=== PATIENT | male | born 1985 | race Caucasian/White ===

== ENCOUNTER 2024-03-22 16:50 | Emergency (ER) | payer BC, SELFPAY ==
--- OUTSIDE RECORDS SUMMARY | 2024-03-22 16:52 | XMS_ITS | Patient Health Summary ---
Author Organization [facility] Address [address] [place] [address] Care Team Providers Care Clinical Operations Specialist Name Role Phone Unavailable Primary Care Provider Unavailabl e Note from [facility],non-owned Affiliates and Associated Physician Practices is amultiple site organization consisting of ambulatory clinics and hospital sitesin [place], [place], [place] and [place]. This disclosure is being madepursuant to the Care Everywhere program and may not contain all information available regarding this patient. Last updated 17.[facility] [employer] Allergies No known active allergies Medications * Be aware that medications may not be up to date on this document. Alwaysverify current medications with the patient. * amphetamine-dextroamphetamine (ADDERALL) 20 MG tablet Take 20 mg by mouth every morning Social History Tobacco Use Types Packs/Day Years Used Date Smoking Tobacco: Never Assessed Sex and Gender Information Value Date Recorded Sex Assigned at Not on file Gender Identity Not on file Sexual Orientation Not on file Last Filed Vital Signs Vital Sign Reading Time Taken Comments Blood Pressure - - Pulse - - Temperature - - Respiratory Rate - - Oxygen Saturation - - Inhaled Oxygen Concentration - - Weight 94.3 kg (208 lb) 11/11/2016 12:19 PM CDT Height 190.5 cm (6' 3 ) 11/11/2016 12:19 PM CDT Body Mass Index 26 11/11/2016 12:19 PM CDT Procedures * MRI LUMBAR SPINE WO CONTRAST(Performed 11/19/2016) Performed for Acute midline low back pain with bilateral sciatica * XR LUMBAR SPINE 4VW OR MORE(Performed 11/19/2016) Performed for Acute midline low back pain with bilateral sciatica Results * MRI LUMBAR SPINE WO CONTRAST (11/19/2016 4:40 PM CDT) Anatomical Region Laterality Modality Spine Magnetic Resonan ce 11/19/2016 4:53 PM CDT Impressions 11/19/2016 5:02 PM CDT There is a grade I anterolisthesis of L5 relative to L4 and S1. 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 Diffuse disc herniations are present at L4-L5 and at L5-S1. There is annular tear at each of these levels. This can be a pain generator. Mild bilateral neural foraminal stenosis is present at L5-S1 with minimal neural foraminal narrowing at L4-L5. Edited by Naomie Kumar on 11/19/2016 5:01 PM Narrative 11/19/2016 5:02 PM CDT MRI LUMBAR SPINE INDICATION: Low back pain, lumbar disc degeneration. COMPARISON: Radiographic examination of the lumbar spine, November 19, 2016. TECHNIQUE: Sagittal and axial T1 and T2. Sagittal STIR, 3-D lumbar myelogram. FINDINGS: Previous radiographic examination of the lumbar spine demonstrates that this patient has five lumbar vertebral bodies. Careful correlation between this and the subsequent radiographic examinations of the lumbar spine is recommended to ensure consistent numbering of disc spaces. This is particularly important if surgery is considered. Alignment: There is a grade I anterolisthesis of L5 relative to L4 and S1. No malalignment is seen at any other level. Marrow: Normal. Spinal cord: Normal in morphology and in signal intensity. Terminates at approximately T12-L1. Disc spaces: Disc height and hydration at L4-L5 and L5-S1 with diffuse disc bulge at each of these levels. High signal intensity is present within the posterior annulus at L4-L5 and L5-S1 consistent with annular tear. The following levels were directly imaged in the axial plane: T12-L1: Normal. L1-L2: Normal. L2-L3: Normal. L3-L4: Normal. L4-L5: A mild diffuse disc bulge does not result in significant stenosis. Neural foramina are minimally narrowed. L5-S1: Facet arthropathy is present bilaterally. Pars interarticularis defects may be present. No significant central canal stenosis is appreciated. Malalignment results in mild bilateral neural foraminal narrowing, left greater than right. Procedure Note Doris Felix MD - 11/19/2016 MRI LUMBAR SPINE INDICATION: Low back pain, lumbar disc degeneration. COMPARISON: Radiographic examination of the lumbar spine, November 19, 2016. TECHNIQUE: Sagittal and axial T1 and T2. Sagittal STIR, 3-D lumbar myelogram. FINDINGS: Previous radiographic examination of the lumbar spine demonstrates that this patient has five lumbar vertebral bodies. Careful correlation between this and the subsequent radiographic examinations of the lumbar spine is recommended to ensure consistent numbering of disc spaces. This is particularly important if surgery is considered. Alignment: There is a grade I anterolisthesis of L5 relative to L4 and S1. No malalignment is seen at any other level. Marrow: Normal. Spinal cord: Normal in morphology and in signal intensity. Terminates at approximately T12-L1. Disc spaces: Disc height and hydration at L4-L5 and L5-S1 with diffuse disc bulge at each of these levels. High signal intensity is present within the posterior annulus at L4-L5 and L5-S1 consistent with annular tear. The following levels were directly imaged in the axial plane: T12-L1: Normal. L1-L2: Normal. L2-L3: Normal. L3-L4: Normal. L4-L5: A mild diffuse disc bulge does not result in significant stenosis. Neural foramina are minimally narrowed. L5-S1: Facet arthropathy is present bilaterally. Pars interarticularis defects may be present. No significant central canal stenosis is appreciated. Malalignment results in mild bilateral neural foraminal narrowing, left greater than right. IMPRESSION There is a grade I anterolisthesis of L5 relative to L4 and S1. 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 Diffuse disc herniations are present at L4-L5 and at L5-S1. There is annular tear at each of these levels. This can be a pain generator. Mild bilateral neural foraminal stenosis is present at L5-S1 with minimal neural foraminal narrowing at L4-L5. Edited by Naomie Kumar on 11/19/2016 5:01 PM Cresencio Hendrickson PA-C MR ORDERABLES * XR LUMBAR SPINE 4+ VW (11/19/2016 3:32 PM CDT) Anatomical Region Laterality Modality Spine Radiographic Kylie ging 11/19/2016 3:35 PM CDT Narrative 11/19/2016 3:36 PM CDT 5 VIEWS LUMBAR SPINE Indication: Back pain Comparison: None available Findings: There is subtle grade 1 anterolisthesis of L5 in regards to S1. There is decreased intervertebral disc space height at L4-L5 and L5-S1. There is subtle lucency in the region of the pars interarticularis at L5 which may indicate pars defects. Consider CT lumbar spine for further delineation if clinically indicated. There is no compression or osseous destruction. Procedure Note Pedro Rasheed MD - 11/19/2016 5 VIEWS LUMBAR SPINE Indication: Back pain Comparison: None available Findings: There is subtle grade 1 anterolisthesis of L5 in regards to S1. There is decreased intervertebral disc space height at L4-L5 and L5-S1. There is subtle lucency in the region of the pars interarticularis at L5 which may indicate pars defects. Consider CT lumbar spine for further delineation if clinically indicated. There is no compression or osseous destruction. Cresencio Hendrickson PA-C DIAGNOSTIC IMAGING O RDERABLES
--- OUTSIDE RECORDS SUMMARY | 2024-03-22 16:52 | XMS_ITS | Clinical Summary ---
Author Organization [facility] [employer] Address [address] [place] [address] Care Team Providers Care Agricultural Engineering Technician Name Role Phone Unavailable Primary Care Provider Unavailabl e Source Comments [facility] [employer],non-owned Affiliates and Associated Physician Practices is amultiple site organization consisting of ambulatory clinics and hospital sitesin [place], [place], [place] and [place]. This disclosure is being madepursuant to the Care Everywhere program and may not contain all information available regarding this patient. Last updated 17.[facility] [employer] Allergies No known active allergies Medications * Be aware that medications may not be up to date on this document. Alwaysverify current medications with the patient. Medication Sig Dispensed Refills Start Date End Date Status amphetamine-dextroamph etamine (ADDERALL) 20 MG tablet Take 20 mg by mouth every morning Active Social History Tobacco Use Types Packs/Day Years [...] Mass Index 26 11/11/2016 12:19 PM CDT Plan of Treatment Health Maintenance Due Date Last Done Comments HIV SCREENING 07/18/1999 HEPATITIS C SCREENING 07/13/2002 DTAP/TDAP/TD VACCINES (1 - Tdap) 07/18/2003 HEPATITIS B VACCINE (1 of 3 - 19+ 3-dose series) 07/18/2003 COVID-19 VACCINE (2023-2 5 season) 2023 INFLUENZA VACCINE (#1) 2023 DEPRESSION SCREENING 02/22/2024 ZOSTER VACCINE (1 of 2) 2034 HIB VACCINE Aged Out No longer eligi ble based on patient's age to complete this topic HPV VACCINE Aged Out No longer eligi ble based on patient's age to complete this topic MENINGOCOCCAL (Group B) VACCINE Aged Out No longer eligible based on patient's age to complete this topic MENINGOCOCCAL VACCINE Aged Out No tom erika eligible based on patient's age to complete this topic PNEUMOCOCCAL VACCINE Aged Out No long er eligible based on patient's age to complete this topic
--- OUTSIDE RECORDS SUMMARY | 2024-03-22 16:52 | XMS_ITS | Clinical Summary ---
Author Organization [facility] Address [address], [address] [address] Phone Care Team Providers Care Aviation Mechanic Name Role Phone Osei Mcleod MD Primary Care Provider [phone] Allergies No known active allergies Medications Fluticasone Propionate (FLONASE NA) by Nasal route daily. Active Cetirizine HCl (ZYRTEC PO) Take by mouth daily. Active amphetamine-dext roamphetamine (ADDERALL) 20 MG Tablet Take 20 mg by mouth 2 times daily. Active montelukast (SINGULAIR) 10 MG Tablet Take 10 mg by mouth daily. Active PROAIR HFA 108 (90 Base) MCG/ACT Aerosol Solution INHALE 2 PUFFS PO TID PRN 0 11/11/2017 Active Active Problems No known active problems Immunizations Immunization Administration Dates Next Due Influenza Vaccine greater than 3 yrs 11/22/2016 Family History Medical History Relation Name Comments Heart Attack Father Colon Cancer Maternal Grandfather Heart Attack Maternal Grandmother Stroke Paternal Grandfather Cancer Paternal Grandmother Relation Name Status Comments Father Alive Maternal Grandfather Maternal Grandmother Paternal Grandfather Paternal Grandmother Social History Tobacco Use Types Packs/Day Years Used Date Smoking Tobacco: Former Cigarettes Q uit: 09/27/2015 Smokeless Tobacco: Never Tobacco Cessation:Counseling Given: No Alcohol Use Standard Drinks/Week Comments Yes 0 (1 standard drink = 0.6 oz pur e alcohol) weekends Sexually Active Control Partners Comments Yes Sex and Gender Information Value Date Recorded Sex Assigned at Not on file Legal Sex Male 7:32 PM CDT Gender Identity Not on file Sexual Orientation Not on file Last Filed Vital Signs Vital Sign Reading Time Taken Comments Blood Pressure 118/76 11/30/2017 9:07 AM CDT Pulse 78 11/30/2017 9:07 AM CDT Temperature 36.9 ??C (98.5 ??F) 11/30/2017 9:07 AM CD T Respiratory Rate 18 11/30/2017 9:07 AM CDT Oxygen Saturation 98% 11/30/2017 9:07 AM CDT Inhaled Oxygen Concentration - - Weight 89.8 kg (198 lb) 11/30/2017 9:07 AM CDT Height 188 cm (6' 2 ) 11/30/2017 9:07 AM CDT Body Mass Index 25.42 11/30/2017 9:07 AM CDT Plan of Treatment Health Maintenance Due Date Last Done Comments Hepatitis C Virus (HCV) Screening 1984 TdaP Immunization 1984 Hepatitis B Immunization (1 of 3 - 19+ 3-dose series) 07/18/2003 Influenza Immunization (#1) 10/23/202303/2016, 11/21/2016, 12/02/2014 SARS-COV-2 Immunization ( season) 2023 Respiratory Syncytial Virus (RSV) Immunization (Adult) (1 - 1-dose 75+ series) 07/18/2059 Meningococcal Immunization (ACWY) Aged Out No longer eligible b ased on patient's age to complete this topic Pneumococcal Immunization Combined Aged Out No longer eligible b ased on patient's age to complete this topic Rotavirus Immunization Aged Out No lo nger eligible based on patient's age to complete this topic Insurance Care Teams Aviation Mechanic Relationship Specialty Start Date End Date Osei Mcleod MD [address] [place] [address] PCP - General Pulmonary Disease 09/22/17
--- OUTSIDE RECORDS SUMMARY | 2024-03-22 16:52 | XMS_ITS | Referral Summary ---
Author Organization [facility] [employer] Address [address] [place] [address] Care Team Providers Care Boarding Specialist Name Role Phone Unavailable Primary Care Provider Unavailabl e Source Comments [facility] [employer],non-owned Affiliates and Associated Physician Practices is amultiple site organization consisting of ambulatory clinics and hospital sitesin [place], [place], [place] and [place]. This disclosure is being madepursuant to the Care Everywhere program and may not contain all information available regarding this patient. Last updated 17.[facility] [employer] Allergies No known active allergies Medications * [...] 11/11/2016 12:19 PM CDT Plan of Treatment Not on file
--- OUTSIDE RECORDS SUMMARY | 2024-03-22 16:53 | XMS_ITS | Continuity of Care Document ---
Author Name [facility] Organization [facility] Care Team Providers Care Member Of Congress Name Role Phone [facility] Unavailable Unavailable Allergies, Adverse Reactions, Alerts Combined list of allergies from Department of Defense and Veterans Affairs facilities. It does not include entries that were removed or entered in error. Substance Category Reaction Severity Reaction type Status Date Reported Comments Source No Known Allergies Drug allergy (disorder) active 05/10/2007 [facility] Encounters Combined list of: 1) Encounters from Department of Veterans Affairs facilities going back up to thelast 18 months. 2) Encounters from the Department [facility] facilities going back up to 280 months. Location Location Details Encounter Type Encounter Number Reason For Visit Attending Provider ADM Date DC Date Status Disposition Source [facility] Outpatient Encounter [id number] 06/03 [facility] Procedures Combined list of: 1) Procedures from Department of Veterans [facility] facilities going back up to thelast 18 months, not all PA non-surgical procedures are included; 2) All procedures from the Department [facility] facilities. Procedure Procedure Type Code Date Perfomer Comments Sourc e POSTOPERATIVE FOLLOW-UP VISIT, NORMALLY INCLUDED IN THE SURGICAL PACKAGE, INDICATE THAT EVALUATION & MANAGEMENT SERVICE WAS PERFORMED DURING A POSTOPERATIVE PERIOD REASON RELATED ORIGINAL PROCEDURE 09/07/2002 [facility] INJECTION, FENTANYL CITRATE, 0.1 MG 09/02/2002 [facility] INDIVIDUAL PSYCHOTHERAPY, INSIGHT ORIENTED, BEHAVIOR MODIFYING AND/OR SUPPORTIVE, IN AN OFFICE OR OUTPATIENT FACILITY, APPROXIMATELY 20 TO 30 MINUTES [id number] W THE PATIENT; W MED EVAL & MGT SER 05/05/2004 [facility] INDIVIDUAL PSYCHOTHERAPY, INSIGHT ORIENTED, BEHAVIOR MODIFYING AND/OR SUPPORTIVE, IN AN OFFICE OR OUTPATIENT FACILITY, APPROXIMATELY 20 TO 30 MINUTES [id number] W THE PATIENT; W MED EVAL & MGT SER 05/04/2004 [facility] INDIVIDUAL PSYCHOTHERAPY, INSIGHT ORIENTED, BEHAVIOR MODIFYING AND/OR SUPPORTIVE, IN AN OFFICE OR OUTPATIENT FACILITY, APPROXIMATELY 45 TO 50 MINUTES [id number] W THE PATIENT; W MED EVAL & MGT SER 01/20/2004 [facility] INDIVIDUAL PSYCHOTHERAPY, INSIGHT ORIENTED, BEHAVIOR MODIFYING AND/OR SUPPORTIVE, IN AN OFFICE OR OUTPATIENT FACILITY, APPROXIMATELY 20 TO 30 MINUTES [id number] W THE PATIENT; [facility] EVAL & MGT SER 01/10/2004 DoD INDIVIDUAL PSYCHOTHERAPY, INSIGHT ORIENTED, BEHAVIOR MODIFYING AND/OR SUPPORTIVE, IN AN OFFICE OR OUTPATIENT FACILITY, APPROXIMATELY 45 TO 50 MINUTES [id number] WITH THE PATIENT 11/12/2003 [facility] INDIVIDUAL PSYCHOTHERAPY, INSIGHT ORIENTED, BEHAVIOR MODIFYING AND/OR SUPPORTIVE, IN AN OFFICE OR OUTPATIENT FACILITY, APPROXIMATELY 20 TO 30 MINUTES [id number] W THE PATIENT; [facility] EVAL & MGT SER 11/11/2003 [facility] INDIVIDUAL PSYCHOTHERAPY, INSIGHT ORIENTED, BEHAVIOR MODIFYING AND/OR SUPPORTIVE, IN AN OFFICE OR OUTPATIENT FACILITY, APPROXIMATELY 45 TO 50 MINUTES [id number] W THE PATIENT; [facility] EVAL & MGT SER 10/17/2003 [facility] INDIVIDUAL PSYCHOTHERAPY, INSIGHT ORIENTED, BEHAVIOR MODIFYING AND/OR SUPPORTIVE, IN AN OFFICE OR OUTPATIENT FACILITY, APPROXIMATELY 45 TO 50 MINUTES [id number] W THE PATIENT; [facility] EVAL & T SER 10/02/2003 [facility]D INDIVIDUAL PSYCHOTHERAPY, INSIGHT ORIENTED, BEHAVIOR MODIFYING AND/OR SUPPORTIVE, IN AN OFFICE OR OUTPATIENT FACILITY, APPROXIMATELY 45 TO 50 MINUTES [id number] WITH THE PATIENT 09/24/2003 [facility] INDIVIDUAL PSYCHOTHERAPY, INSIGHT ORIENTED, BEHAVIOR MODIFYING AND/OR SUPPORTIVE, IN AN OFFICE OR OUTPATIENT FACILITY, APPROXIMATELY 20 TO 30 MINUTES [id number] W THE PATIENT; [facility] EVAL & MGT SER 08/30/2003 [facility]D INDIVIDUAL PSYCHOTHERAPY, INSIGHT ORIENTED, BEHAVIOR MODIFYING AND/OR SUPPORTIVE, IN AN OFFICE OR OUTPATIENT FACILITY, APPROXIMATELY 20 TO 30 MINUTES [id number] W THE PATIENT; [facility] EVAL & MGT SER 08/16/2003 [facility] INDIVIDUAL PSYCHOTHERAPY, INSIGHT ORIENTED, BEHAVIOR MODIFYING AND/OR SUPPORTIVE, IN AN OFFICE OR OUTPATIENT FACILITY, APPROXIMATELY 45 TO 50 MINUTES [id number] WITH THE PATIENT 08/12/2003 [facility] INDIVIDUAL PSYCHOTHERAPY, INSIGHT ORIENTED, BEHAVIOR MODIFYING AND/OR SUPPORTIVE, IN AN OFFICE OR OUTPATIENT FACILITY, APPROXIMATELY 45 TO 50 MINUTES [id number] WITH THE PATIENT 08/05/2003 [facility] PSYCHIATRIC DIAGNOSTIC INTERVIEW EXAMINATION 07/26/2003 DoD PSYCHIATRIC DIAGNOSTIC INTERVIEW EXAMINATION 07/18/2003 [facility] PSYCHIATRIC DIAGNOSTIC INTERVIEW EXAMINATION 07/16/2003 DoD TREATMENT OF SUPERFICIAL WOUND DEHISCENCE; SIMPLE CLOSURE 06/28/2003 DoD Social History Combined list of available smoking, tobacco, and other social history from Department of Defense and Veterans Affairs facilities. Social History Type Response Date Comment Sourc e This section is an empty social history section. DoD
--- OUTSIDE RECORDS SUMMARY | 2024-03-22 16:53 | XMS_ITS | Encounter Summary ---
Author Organization [facility] Address [address] [place] [address] Care Team Providers Care Applied Research Director Name Role Phone Raudel Cline MD Primary Care Provider [phone] Encounter Details Date Type Department Care Team (Late st Contact Info) Description 07/23/2019 Telephone [facility] [address] [place] [address] Dedrick Rico, RT Social History Tobacco Use Types Packs/Day Years Used Date Smoking Tobacco: Never Smokeless Tobacco: Never Alcohol Use Standard Drinks/Week Comments Yes 0 (1 standard drink = 0.6 oz pur e alcohol) PHQ-2 Answer Date Recorded PHQ-2 Score 0 03/22/2019 Sex and Gender Information Value Date Recorded Sex Assigned at Not on file Legal Sex Male 12:47 PM CLINICAL RESEARCH TECH Gender Identity Male 07/07/2021 9:32 AM CDT Sexual Orientation Straight 07/07/2021 9: 32 AM CDT documented as of this encounter Plan of Treatment Not on file documented as of this encounter Visit Diagnoses Not on filedocumented in this encounter Additional Health Concerns Infection Onset Date Last Indicated Resolved Time COVID: Suspected 10/21/2019 10/21/2019 10/22/2019 4:28 AM CDT Respiratory Infection (YVON), contact + droplet Comment:Automatically added due to negative COVID-19 result. 10/22/2019 10/22/2019 11/05/2019 3:0 5 AM CDT COVID: Suspected 2021 2021 2021 4:31 PM CDT documented as of this encounter Care Teams Applied Research Director Relationship Specialty Start Date End Date Raudel Cline MD [address] [place] [address] PCP - General Family Medicine 03/22/19 documented as of this encounter
--- OUTSIDE RECORDS SUMMARY | 2024-03-22 16:53 | XMS_ITS | Referral Summary ---
Author Organization [address] lt Address [address] [facility] [place] [address] Care Team Providers Care Bag Turner Name Role Phone Raudel Cline MD Primary Care Provider [phone] Encounters Date Type Department Care Team Description 02/21/2024 7:00 AM VAT SKIMMER Office Visit [facility] [address] [address] Amber Starks NP Physical exam, annual (Primary Dx); Erectile dysfunction, unspecified erectile dysfunction type; Mild intermittent asthma without complication; Attention deficit hyperactivity disorder (ADHD), predominantly inattentive type; Mixed hyperlipidemia; Chronic bilateral low back pain without sciatica; BMI 24.0-24.9, adult from Last 3 Months Allergies Active Allergy Reactions Criticality Noted Date Comments Tolterodine Diarrhea Low 03/14/2023 Medications albuterol HFA (ProAir HFA) 90 mcg/actuation inhalerIndication s:Mild intermittent asthma without complication Inhale 2 puffs every 6 (six) hours as needed for wheezing 1 Inhaler 11 03/22/19 20 Active trospium XR (SANCTURA XR) 60 mg capsule,extended release 24hrIndications:O veractive bladder Take 1 capsule (60 mg total) by mouth daily 90 capsule 3 06/21/19 24 025 Active cyclobenzaprine (FLEXERIL) 10 mg tabletIndications :Chronic bilateral low back pain without sciatica Take 1 tablet (10 mg total) by mouth 3 (three) times a day as needed for muscle spasms 30 tablet 07/14/19 24 Active fluticasone propionate (FLONASE) 50 mcg/actuation nasal sprayIndications: Chronic rhinitis SHAKE LIQUID AND USE 2 SPRAYS IN EACH NOSTRIL DAILY 48 g 2 11/17/19 24 Active cetirizine (ZyrTEC) 10 mg tablet TAKE 1 TABLET BY MOUTH DAILY 90 tablet 1 12/08/19 24 Active meloxicam (MOBIC) 15 mg tablet TAKE 1 TABLET(15 MG) BY MOUTH DAILY 90 tablet 1 02/06/20 24 Active tadalafiL (CIALIS) 20 mg tabletIndications :Erectile dysfunction, unspecified erectile dysfunction type Take 1 tablet (20 mg total) by mouth daily as needed for erectile dysfunction 30 tablet 11 02/21/20 24 Active dextroamphetamine -amphetamine (ADDERALL) 20 mg tabletIndications :Attention-Defici t Hyperactivity Disorder Take 1 tablet (20 mg total) by mouth 2 (two) times a day 60 tablet 03/19/19 25 025 Active dextroamphetamine -amphetamine (ADDERALL) 20 mg tabletIndications :Attention-Defici t Hyperactivity Disorder Take 1 tablet (20 mg total) by mouth 2 (two) times a day 60 tablet 02/13/20 24 025 Discontin ued(Reord er) Active Problems Problem Noted Date Diagnosed Date Vitamin D deficiency 05/31/2023 Assessment & Plan (05/31/2023 11:22 AM CDT): Started vitamin d sublingual supplement. Reviewed outside labs completed in February showing vitamin D=21 Reports sig improvement in energy with supplementation. Chronic bilateral low back pain without sciatica 11/12/2022 Assessment & Plan (02/21/2024 8:47 AM VAT SKIMMER): Having improvement with Meloxicam PRN. Will continue to monitor. Assessment & Plan (09/02/2023 1:37 PM CDT): Significant improvement in back pain with weight loss. Continues meloxicam as needed. Assessment & Plan (11/12/2022 5:17 PM CDT): Stable; good relief with meloxicam however notes it takes awhile for meloxicam to start working in the morning. Will avoid acetaminophen for now. Can trial prn use of cyclobenzaprine and reviewed medication side effects. Considering epidural Bilirubin in urine 11/12/2022 Assessment & Plan (11/12/2022 5:15 PM CDT): Incidental finding with urology office. Patient instructed to avoid ETOH (reports social alcohol use only) and avoid use of acetaminophen (currently taking 1000 mg daily). Will repeat UA and check labs. LFT, UA, hepatitis panel ordered. Physical exam, annual 04/23/2022 Assessment & Plan (02/21/2024 8:47 AM VAT SKIMMER): In regard to health maintenance, Influenza vaccine- declined Eat a healthy diet: focus on lean meats and proteins, more fruits, vegetables and whole grains and low in sugars and fats. Limit red meat and avoid processed meat. Maintain a healthy weight; avoid being overweight. Aim for a normal body mass index (BMI) of 18.5-24.9. Help learning to eat healthier, we can set up appointment with voice writing reporter/biodiesel technology manager. Have an active lifestyle, strive for 30 minutes of moderate exercise 5 times a week and strength or resistance training at least twice a week. Use broad-spectrum (UVA+UVB) sunscreen with SPF 30 or greater, is water resistant, limit time spent in the sun (10 am-4pm), wear hat, wear UV protective clothing, wear sunglasses. Never use a tanning bed. Skin that was irradiated may be more sensitive over your lifetime. Limit alcohol intake, 1 drink per day for a woman and 2 drinks per day for a man. Assessment & Plan (04/23/2022 3:23 PM VAT SKIMMER): Preventive exam; reviewed recommended preventive screenings and vaccinations. Encouraged patient to complete labs. Screening c-scope age 44, no family history of colorectal cancer. Overactive bladder 04/23/2022 Assessment & Plan (02/24/2023 4:35 PM VAT SKIMMER): Tried in failed VESIcare, oxybutynin and Myrbetriq. Is currently taking tolterodine which he feels is causing him to have diarrhea. He would like to start trospium however insurance will not cover this until several other medications have been tried and failed. Patient is close to failing all medications so hopefully this will finally be approved. Assessment & Plan (07/30/2022 4:17 PM CDT): Following with urology, slight improvement with mirabegron. Assessment & Plan (04/23/2022 3:28 PM VAT SKIMMER): Followign with urology, started on mirabegron 25 mg daily with moderate response, patient interseted in increasing medication dosage. Agreeable to increase mirabegron to 50 mg daily, reviewed medication side effects and scheduling. Will monitor response. BMI 24.0-24.9, adult 10/09/2021 Assessment & Plan (02/21/2024 8:47 AM VAT SKIMMER): Weight appropriate for patient. Assessment & Plan (09/02/2023 1:45 PM CDT): Continues to benefit from GLP 1, [facility] by [facility]. Weight is down 50 lb in the past 7 months. Patient reports making significant diet changes, is now eating a lot healthier. Assessment & Plan (05/31/2023 11:28 AM CDT): Weight loss of 33lbs from last office visit with use of GLP-1. Patient states he was tolerating medication. Discontinued as he has reached his goal weight. Will continue to monitor Assessment & Plan (07/30/2022 4:24 PM CDT): As always, encourage increase exercise and healthy lifestyle. Assessment & Plan (04/23/2022 3:24 PM VAT SKIMMER): Discussed healthy diet and importance of regular physical activity. Assessment & Plan (04/23/2022 3:08 PM VAT SKIMMER): Discussed healthy diet and importance of regular physical activity. Assessment & Plan (10/09/2021 2:23 PM CDT): Discussed healthy diet and importance of regular physical activity. Reviewed recent lipid panel with patient recommended increase exercise to help increase healthy cholesterol. Urinary frequency 03/13/2021 Assessment & Plan (04/23/2022 3:08 PM VAT SKIMMER): Stable; Following with urology, was benefiting from oxybutynin but could not tolerate dry mouth side effects. Will continue to monitor. Assessment & Plan (07/03/2021 2:52 PM CDT): Unchanged; Updated referral to urology. Assessment & Plan (03/26/2021 11:39 AM VAT SKIMMER): Will check urine. Reviewed bladder irritants. Discussed reducing caffeine and artificial sweeteners in diet. Increase fluid intake. Reviewed red flags warranting immediate follow up. Urology referral placed. Gastroesophageal reflux disease 03/13/2021 Assessment & Plan (03/26/2021 11:38 AM VAT SKIMMER): Omeprazole 40mg daily, avoid aggravating foods and avoid laying down after eating. Discussed need to decrease caffeine consumption. Erectile dysfunction 03/13/2021 Assessment & Plan (02/21/2024 8:47 AM VAT SKIMMER): Cialis refilled. Continues to have success with use. Will continue to monitor. Assessment & Plan (03/26/2021 11:37 AM VAT SKIMMER): Given symptom onset with increased urinary frequency recommended referral to urology for further evaluation. Patient given contact information. Need for immunization against influenza 11/29/19 21 Mixed hyperlipidemia 11/28/2020 Assessment & Plan (02/21/2024 8:46 AM VAT SKIMMER): Lipid panel elevated and not well controlled. Will continue to monitor. There is a pending Lipid panel in chart. Continues to decline medication. Assessment & Plan (05/31/2023 11:13 AM CDT): TC 246 HDL 20 LDL 166 TRG 299 03/17 TC 189 HDL 25 LDL 138 TRG 139 Assessment & Plan (02/24/2023 4:35 PM VAT SKIMMER): Results for orders placed or performed in visit on 02/24/23 POCT lipid panel Result Value Ref Range Cholesterol, POC 246 mg/dL HDL, POC 20 mg/dL Triglycerides, POC 299 mg/dL LDL, Direct, POC 166 mg/dL Chol/HDL Ratio, POC 12.0 Non-HDL Cholesterol, POC 226 mg/dL Cholesterol Total, POC 246 mg/dL Reviewed triglycerides and elevated LDL. Reviewed diet and exercise recommendations. Patient states that he and his recently started meal prepping. Will repeat labs prior to next follow-up in 3 months. Labs ordered previously Assessment & Plan (11/12/2022 5:17 PM CDT): Fasting labs ordered today. Assessment & Plan (07/30/2022 4:23 PM CDT): Will complete fasting labs. Assessment & Plan (04/23/2022 3:24 PM VAT SKIMMER): Encouraged patient to complete labs. Assessment & Plan (03/26/2021 11:40 AM VAT SKIMMER): To complete labs ordered at last OV. Encounter for screening for lipid disorder 05/26 Assessment & Plan (11/28/2020 4:12 PM CDT): Reviewed previous lipid panel. Will check labs today. Assessment & Plan (08/28/2020 5:47 PM CDT): 03/29/19 TV=551 HDL=34 TG=84 RSF=972 TC/HDL=5.0 Lipid panel ordered; will call w/results when received. Reviewed diet/exercise recommendations. Deviated nasal septum 07/05/2019 Assessment & Plan (07/05/2019 4:22 PM CDT): Will Review 2018 CT Sinus, consider repeating it Septoplasty and Submucosal reduction of Inferior turbinates bilaterally Risks and complications include anesthesia, bleeding, infection, injury to surrounding structures including brain with csf leak, eyes with vision changes, nasal mucosa, atrophic rhinitis, no guarantee that sense of smell will return, need for further surgery. Hypertrophy of both inferior nasal turbinates Assessment & Plan (07/05/2019 4:22 PM CDT): Will Review 2018 CT Sinus, consider repeating it Septoplasty and Submucosal reduction of Inferior turbinates bilaterally Risks and complications include anesthesia, bleeding, infection, injury to surrounding structures including brain with csf leak, eyes with vision changes, nasal mucosa, atrophic rhinitis, no guarantee that sense of smell will return, need for further surgery. Fatigue 05/17/2019 Assessment & Plan (11/28/2020 4:12 PM CDT): Discussed differential diagnoses and multiple factors influencing fatigue including anemia, endocrinopathies, vitamin deficiencies, hormonal imbalance, inadequate sleep, poor diet, and lack of exercise. Encouraged healthy eating and regular physical activity. Reviewed sleep hygiene. Will continue to monitor. Assessment & Plan (08/28/2020 5:48 PM CDT): Reviewed good sleep hygiene: no electronics, cool/dark room, warm shower/tub prior to bedtime, no caffeine after 3-4p, no exercise 3hr prior to sleep. Labs ordered; will contact w/results when rec'd. Assessment & Plan (05/17/2019 3:05 PM CDT): Likely due to decreased nutrition and hydration status. Mild intermittent asthma without complication Assessment & Plan (02/21/2024 8:45 AM VAT SKIMMER): Stable and well controlled. Will continue on PRN albuterol inhaler. Rarely using. Will continue to monitor. Attention deficit hyperactiv ity disorder (ADHD), predominantly inattentive type 03/22/2019 Assessment & Plan (02/21/2024 8:45 AM VAT SKIMMER): Stable and well controlled. Will continue on Adderall. Will continue to monitor. Assessment & Plan (09/02/2023 1:45 PM CDT): Stable; continue present management with Adderall 20 mg b.i.d.. No changes made today, tolerating medication without side effects. Patient is taking medication as prescribed. Assessment & Plan (05/31/2023 11:24 AM CDT): Conitnues adderall 20 mg b.i.d. no changes made today. Assessment & Plan (02/24/2023 4:35 PM VAT SKIMMER): Good response to present management, no changes made today. Continue Adderall 20 mg b.i.d. Assessment & Plan (11/12/2022 5:16 PM CDT): Stable; continue adderall 20 mg b.I.d. Patient reports good response to medication and is taking medication as prescribed. Assessment & Plan (07/30/2022 4:23 PM CDT): Stable; continue Adderall without change. Patient is taking medications as prescribed. Assessment & Plan (04/23/2022 3:26 PM VAT SKIMMER): Stable on current medications. No changes made today. Denies any side effects from adderall. Assessment & Plan (04/23/2022 3:08 PM VAT SKIMMER): Stable; continue current prescription therapy. Assessment & Plan (10/09/2021 2:22 PM CDT): Stable. Continue adderall 20 mg b.i.d. Patient denies any changes in appetite, weight or moods. No sleep disturbance, chest pain, palpitations or sob. Assessment & Plan (07/03/2021 2:51 PM CDT): Doing well on adderall 20mg daily. Reviewed medication SE and scheduling. Assessment & Plan (03/26/2021 11:40 AM VAT SKIMMER): Doing well on adderall 20mg daily. Reviewed medication SE and scheduling. Assessment & Plan (08/28/2020 3:37 PM CDT): adderall 20mg bid #60 refilled 08/07/20 Reports improvement in work/family with medications to control ADD. Aware to monitor weight/HR/BP. Reviewed medication side effects and scheduling. Reviewed red flags. Assessment & Plan (08/20/2019 4:14 PM CDT): Stable on current medication Primary narcolepsy without cataplexy 03/22/2019 Assessment & Plan (08/28/2020 3:38 PM CDT): adderall 20mg bid #60 refilled 08/07/20 Assessment & Plan (03/26/2019 3:59 PM VAT SKIMMER): Will continue current use of Adderall. May consider switching to Nuvigil. Family history of arteriosclerotic cardiovascula r disease 03/22/2019 Assessment & Plan (03/26/2019 4:00 PM VAT SKIMMER): Reviewed heart healthy eating, need for maintaining a healthy weight and exercise. Allergies 03/22/2019 Assessment & Plan (07/05/2019 4:34 PM CDT): Continue Allergy treatment with Dr. Dominguez Assessment & Plan (03/26/2019 3:59 PM VAT SKIMMER): Symptoms controlled at this time. Chronic pain of left ankle 03/22/2019 Nasal polyps 03/22/2019 Chronic rhinitis 03/22/2019 Resolved Problems Problem Noted Date Diagnosed Date Resolved Date BMI 27.0-27.9,adult 08/28/2020 05/12/19 22 Assessment & Plan (03/26/2021 11:40 AM VAT SKIMMER): Discussed healthy diet and importance of regular physical activity. BMI is acceptable for this patient. Assessment & Plan (11/28/2020 4:15 PM CDT): Discussed healthy diet and importance of regular physical activity. Assessment & Plan (08/28/2020 3:58 PM CDT): Discussed healthy diet and importance of regular physical activity. BMI is acceptable for this patient. Skin tag 08/20/2019 08/28/2020 Assessment & Plan (08/20/2019 4:15 PM CDT): Will make appointment to have this removed. Diarrhea 05/17/2019 08/28/2020 Assessment & Plan (05/17/2019 3:05 PM CDT): This has resolved. Advised on need for hydration. Nausea 05/17/2019 08/28/2020 Assessment & Plan (05/17/2019 3:04 PM CDT): Briefed on eating a diet with bland foods. Immunizations Name Administration Dates Next Due Influenza, Quadrivalent, Spl it, Preservative Free, Intramuscular 11/12/2022,01/22/2022,11/28/2020,10/21 Influenza, Trivalent, IM (MDV) 11/22/2016 Influenza, Trivalent, Preser vative Free, Intramuscular 11/21/2016,12/02/2014 Influenza, Unspecified 02/21/2024(Deferr ed: Patient Refused),01/20/2019 Pneumococcal Conjugate Pcv20 10/09/2021(Deferred : Patient Refused) Pneumococcal Polysaccharide PPV23 07/03/2021(Def erred: Patient Refused) Tdap 10/22/2019 Social History Tobacco Use Types Packs/Day Years Used Date Smoking Tobacco: Never Smokeless Tobacco: Never Tobacco Cessation:Counseling Given: Not Answered Alcohol Use Standard Drinks/Week Comments Yes 0 (1 standard drink = 0.6 oz pur e alcohol) AUDIT-C Answer Date Recorded Q1: How often do you have a drink containing alc ohol? 2-4 times a month 11/12/2022 Q2: How many drinks containi ng alcohol do you have on a typical day when you are drinking? 3 or 4 11/12/2022 Q3: How often do you have si x or more drinks on one occasion? Never 11/12/2022 PHQ-2 Answer Date Recorded PHQ-2 Total Score (If total score is 3 or more points, staff should administer the PHQ-9) 0 02/21/2024 Sex and Gender Information Value Date Recorded Sex Assigned at Not on file Legal Sex Male 12:47 PM VAT SKIMMER Gender Identity Male 07/07/2021 9:32 AM CDT Sexual Orientation Straight 07/07/2021 9: 32 AM CDT Occupation Industry Job Start Date Job End Date [employer] Not on file Not on file Not on file Last Filed Vital Signs Vital Sign Reading Time Taken Comments Blood Pressure 100/74 02/21/2024 7:05 AM VAT SKIMMER Pulse 88 02/21/2024 7:05 AM VAT SKIMMER Temperature 37.1 ??C (98.8 ??F) 09/02/2023 1:27 PM CD T Respiratory Rate 18 02/21/2024 7:05 AM VAT SKIMMER Oxygen Saturation 95% 02/21/2024 7:05 AM VAT SKIMMER Inhaled Oxygen Concentration - - Weight 91.3 kg (201 lb 3.2 oz) 02/21/2024 7:05 A M VAT SKIMMER Height 185.4 cm (6' 0.99 ) 02/21/2024 7:05 AM CS T Body Mass Index 26.55 02/21/2024 7:05 AM VAT SKIMMER Plan of Treatment Not on file Insurance [employer] [facility] [employer] [place] [facility] Care Teams Bag Turner Relationship Specialty Start Date End Date Raudel Cline MD [address] [place] [address] PCP - General Family Medicine 03/22/19
--- OUTSIDE RECORDS SUMMARY | 2024-03-22 16:53 | XMS_ITS | Clinical Summary ---
Author Organization [address] lt Address [address] ernesto [facility] [place] [address] Care Team Providers Care Histology Aide Name Role Phone Raudel Cline MD Primary Care Provider [phone] Allergies Active Allergy Reactions Criticality Noted Date [...] 11/12/2022 Assessment & Plan (02/21/2024 8:47 AM DIE ENGRAVER): Having improvement with Meloxicam PRN. Will continue [...] 04/23/2022 Assessment & Plan (02/21/2024 8:47 AM DIE ENGRAVER): In regard to health maintenance, Influenza vaccine- [...] healthier, we can set up appointment with lead technologist in cytogenetics/vegetable cutter. Have an active lifestyle, strive for 30 [...] man. Assessment & Plan (04/23/2022 3:23 PM DIE ENGRAVER): Preventive exam; reviewed recommended preventive screenings and vaccinations. Encouraged patient to complete labs. Screening c-scope age 44, no family history of colorectal cancer. Overactive bladder 04/23/2022 Assessment & Plan (02/24/2023 4:35 PM DIE ENGRAVER): Tried in failed VESIcare, oxybutynin and Myrbetriq. [...] mirabegron. Assessment & Plan (04/23/2022 3:28 PM DIE ENGRAVER): Followign with urology, started on mirabegron 25 mg daily with moderate response, patient interseted in increasing medication dosage. Agreeable to increase mirabegron to 50 mg daily, reviewed medication side effects and scheduling. Will monitor response. BMI 24.0-24.9, adult 10/09/2021 Assessment & Plan (02/21/2024 8:47 AM DIE ENGRAVER): Weight appropriate for patient. Assessment & Plan [...] lifestyle. Assessment & Plan (04/23/2022 3:24 PM DIE ENGRAVER): Discussed healthy diet and importance of regular physical activity. Assessment & Plan (04/23/2022 3:08 PM DIE ENGRAVER): Discussed healthy diet and importance of regular physical activity. Assessment & Plan (10/09/2021 2:23 PM CDT): Discussed healthy diet and importance of regular physical activity. Reviewed recent lipid panel with patient recommended increase exercise to help increase healthy cholesterol. Urinary frequency 03/13/2021 Assessment & Plan (04/23/2022 3:08 PM DIE ENGRAVER): Stable; Following with urology, was benefiting from oxybutynin but could not tolerate dry mouth side effects. Will continue to monitor. Assessment & Plan (07/03/2021 2:52 PM CDT): Unchanged; Updated referral to urology. Assessment & Plan (03/26/2021 11:39 AM DIE ENGRAVER): Will check urine. Reviewed bladder irritants. Discussed reducing caffeine and artificial sweeteners in diet. Increase fluid intake. Reviewed red flags warranting immediate follow up. Urology referral placed. Gastroesophageal reflux disease 03/13/2021 Assessment & Plan (03/26/2021 11:38 AM DIE ENGRAVER): Omeprazole 40mg daily, avoid aggravating foods and avoid laying down after eating. Discussed need to decrease caffeine consumption. Erectile dysfunction 03/13/2021 Assessment & Plan (02/21/2024 8:47 AM DIE ENGRAVER): Cialis refilled. Continues to have success with use. Will continue to monitor. Assessment & Plan (03/26/2021 11:37 AM DIE ENGRAVER): Given symptom onset with increased urinary frequency recommended referral to urology for further evaluation. Patient given contact information. Need for immunization against influenza 11/29/19 21 Mixed hyperlipidemia 11/28/2020 Assessment & Plan (02/21/2024 8:46 AM DIE ENGRAVER): Lipid panel elevated and not well controlled. Will continue to monitor. There is a pending Lipid panel in chart. Continues to decline medication. Assessment & Plan (05/31/2023 11:13 AM CDT): TC 246 HDL 20 LDL 166 TRG 299 03/17 TC 189 HDL 25 LDL 138 TRG 139 Assessment & Plan (02/24/2023 4:35 PM DIE ENGRAVER): Results for orders placed or performed in [...] labs. Assessment & Plan (04/23/2022 3:24 PM DIE ENGRAVER): Encouraged patient to complete labs. Assessment & Plan (03/26/2021 11:40 AM DIE ENGRAVER): To complete labs ordered at last OV. Encounter for screening for lipid disorder 05/26 Assessment & Plan (11/28/2020 4:12 PM CDT): Reviewed previous lipid panel. Will check labs today. Assessment & Plan (08/28/2020 5:47 PM CDT): 03/29/19 YG=276 HDL=34 TG=84 KCB=291 TC/HDL=5.0 Lipid panel ordered; will call w/results [...] complication Assessment & Plan (02/21/2024 8:45 AM DIE ENGRAVER): Stable and well controlled. Will continue on PRN albuterol inhaler. Rarely using. Will continue to monitor. Attention deficit hyperactiv ity disorder (ADHD), predominantly inattentive type 03/22/2019 Assessment & Plan (02/21/2024 8:45 AM DIE ENGRAVER): Stable and well controlled. Will continue on [...] today. Assessment & Plan (02/24/2023 4:35 PM DIE ENGRAVER): Good response to present management, no changes made today. Continue Adderall 20 mg b.i.d. Assessment & Plan (11/12/2022 5:16 PM CDT): Stable; continue adderall 20 mg b.I.d. Patient reports good response to medication and is taking medication as prescribed. Assessment & Plan (07/30/2022 4:23 PM CDT): Stable; continue Adderall without change. Patient is taking medications as prescribed. Assessment & Plan (04/23/2022 3:26 PM DIE ENGRAVER): Stable on current medications. No changes made today. Denies any side effects from adderall. Assessment & Plan (04/23/2022 3:08 PM DIE ENGRAVER): Stable; continue current prescription therapy. Assessment & Plan (10/09/2021 2:22 PM CDT): Stable. Continue adderall 20 mg b.i.d. Patient denies any changes in appetite, weight or moods. No sleep disturbance, chest pain, palpitations or sob. Assessment & Plan (07/03/2021 2:51 PM CDT): Doing well on adderall 20mg daily. Reviewed medication SE and scheduling. Assessment & Plan (03/26/2021 11:40 AM DIE ENGRAVER): Doing well on adderall 20mg daily. Reviewed [...] 08/07/20 Assessment & Plan (03/26/2019 3:59 PM DIE ENGRAVER): Will continue current use of Adderall. May consider switching to Nuvigil. Family history of arteriosclerotic cardiovascula r disease 03/22/2019 Assessment & Plan (03/26/2019 4:00 PM DIE ENGRAVER): Reviewed heart healthy eating, need for maintaining a healthy weight and exercise. Allergies 03/22/2019 Assessment & Plan (07/05/2019 4:34 PM CDT): Continue Allergy treatment with Dr. Dominguez Assessment & Plan (03/26/2019 3:59 PM DIE ENGRAVER): Symptoms controlled at this time. Chronic pain of left ankle 03/22/2019 Nasal polyps 03/22/2019 Chronic rhinitis 03/22/2019 Resolved Problems Problem Noted Date Diagnosed Date Resolved Date BMI 27.0-27.9,adult 08/28/2020 05/12/19 22 Assessment & Plan (03/26/2021 11:40 AM DIE ENGRAVER): Discussed healthy diet and importance of regular [...] on eating a diet with bland foods. Encounters Date Type Department Care Team Description 02/21/2024 7:00 AM DIE ENGRAVER [facility] Visit [facility] [address] [address] Amber Starks NP Physical exam, annual (Primary Dx); Erectile dysfunction, unspecified erectile dysfunction type; Mild intermittent asthma without complication; Attention deficit hyperactivity disorder (ADHD), predominantly inattentive type; Mixed hyperlipidemia; Chronic bilateral low back pain without sciatica; BMI 24.0-24.9, adult from Last 3 Months Immunizations Name Administration Dates Next Due Influenza, Quadrivalent, Spl it, Preservative Free, Intramuscular 11/12/2022,01/22/2022,11/28/2020,10/21 Influenza, Trivalent, IM (MDV) 11/22/2016 Influenza, Trivalent, Preser vative Free, Intramuscular 11/21/2016,12/02/2014 Influenza, Unspecified 02/21/2024(Deferr ed: Patient Refused),01/20/2019 Pneumococcal Conjugate Pcv20 10/09/2021(Deferred : Patient Refused) Pneumococcal Polysaccharide PPV23 07/03/2021(Def erred: Patient Refused) Tdap 10/22/2019 Medical History Medical History Date Comments Asthma ADHD (attention deficit hyperactivity disorder) Depression Spina bifida (HCC) Family History Medical History Relation Name Comments Heart disease Father Relation Name Status Comments Brother Alive Father Alive Mother Alive Sister 1 Alive Sister 2 Alive Social History Tobacco Use Types Packs/Day Years [...] on file Legal Sex Male 12:47 PM DIE ENGRAVER Gender Identity Male 07/07/2021 9:32 AM CDT Sexual Orientation Straight 07/07/2021 9: 32 AM CDT Occupation Industry Job Start Date Job End Date [employer] Not on file Not on file Not on file Obstetrics History Last Filed Vital Signs Vital Sign Reading Time Taken Comments Blood Pressure 100/74 02/21/2024 7:05 AM DIE ENGRAVER Pulse 88 02/21/2024 7:05 AM DIE ENGRAVER Temperature 37.1 ??C (98.8 ??F) 09/02/2023 1:27 PM CD T Respiratory Rate 18 02/21/2024 7:05 AM DIE ENGRAVER Oxygen Saturation 95% 02/21/2024 7:05 AM DIE ENGRAVER Inhaled Oxygen Concentration - - Weight 91.3 kg (201 lb 3.2 oz) 02/21/2024 7:05 A M DIE ENGRAVER Height 185.4 cm (6' 0.99 ) 02/21/2024 7:05 AM CS T Body Mass Index 26.55 02/21/2024 7:05 AM DIE ENGRAVER Plan of Treatment Health Maintenance Due Date Last Done Comments Hepatitis C Screening 1984 Pneumococcal vaccine <65 (1 of 2 - PCV) 1990 Hepatitis B Screening 2002 Influenza Vaccine (#1) 2024 3, 01/22/2022, 11/28/2020, Additional history exists Postponed from 10/23/2023 (Patient declined, but will receive in the future) Depression Screening 02/20/2025 02/21/2024, 09/02/2023, 05/31/2023, Additional history exists Regular Well Visit/Exam 18-64 02/20/2025 02/21/2024, 04/23/2022 DTaP/Tdap/Td Vaccine (2 - Td or Tdap) 10/21/2029 10/22/2019 HPV Vaccines Aged Out No longer eligi ble based on patient's age to complete this topic Varicella Vaccines Discontinued [place] Care Teams Histology Aide Relationship Specialty Start Date End Date Raudel Cline MD Leidy CARRIZALES, [id number] PCP - General Family Medicine 03/22/19
--- OUTSIDE RECORDS SUMMARY | 2024-03-22 16:55 | XMS_ITS | Continuity of Care Document ---
Author Name [facility] Organization [facility] Care Team Providers Care Assessment Consultant Name Role Phone [facility] Unavailable Unavailable Allergies, Adverse Reactions, Alerts Combined [...] 18 months. 2) Encounters from the Department [facility] facilities going back up to 280 months. Location Location Details Encounter Type Encounter Number Reason For Visit Attending Provider ADM Date DC Date Status Disposition Source [facility] Outpatient Encounter [id number] 06/03 [facility] Procedures Combined list of: 1) Procedures from [facility] facilities going back up to thelast 18 months, not all [place] non-surgical procedures are included; 2) All procedures from the Department [facility] facilities. Procedure Procedure Type Code Date Perfomer Comments Sourc e POSTOPERATIVE FOLLOW-UP VISIT, NORMALLY INCLUDED IN THE SURGICAL PACKAGE, INDICATE THAT EVALUATION & MANAGEMENT SERVICE WAS PERFORMED DURING A POSTOPERATIVE PERIOD REASON RELATED ORIGINAL PROCEDURE 09/07/2002 [facility] INJECTION, FENTANYL CITRATE, 0.1 MG 09/02/2002 [facility] INDIVIDUAL PSYCHOTHERAPY, INSIGHT ORIENTED, BEHAVIOR MODIFYING AND/OR SUPPORTIVE, IN AN OFFICE OR OUTPATIENT FACILITY, APPROXIMATELY 20 TO 30 MINUTES [id number] W THE PATIENT; W MED EVAL & MGT SER 05/05/2004 [facility] INDIVIDUAL PSYCHOTHERAPY, INSIGHT ORIENTED, BEHAVIOR MODIFYING AND/OR SUPPORTIVE, IN AN OFFICE OR OUTPATIENT FACILITY, APPROXIMATELY 20 TO 30 MINUTES [id number] W THE PATIENT; W MED EVAL & MGT SER 05/04/2004 [facility] INDIVIDUAL PSYCHOTHERAPY, INSIGHT ORIENTED, BEHAVIOR MODIFYING AND/OR SUPPORTIVE, IN AN OFFICE OR OUTPATIENT FACILITY, APPROXIMATELY 45 TO 50 MINUTES [id number] W THE PATIENT; W MED EVAL & MGT SER 01/20/2004 [facility] INDIVIDUAL PSYCHOTHERAPY, INSIGHT ORIENTED, BEHAVIOR MODIFYING AND/OR SUPPORTIVE, IN AN OFFICE OR OUTPATIENT FACILITY, APPROXIMATELY 20 TO 30 MINUTES [id number] W THE PATIENT; [facility] EVAL & MGT SER 01/10/2004 [facility] INDIVIDUAL PSYCHOTHERAPY, INSIGHT ORIENTED, BEHAVIOR MODIFYING AND/OR SUPPORTIVE, IN AN OFFICE OR OUTPATIENT FACILITY, APPROXIMATELY 45 TO 50 MINUTES [id number] WITH THE PATIENT 11/12/2003 [facility] INDIVIDUAL PSYCHOTHERAPY, INSIGHT ORIENTED, BEHAVIOR MODIFYING AND/OR SUPPORTIVE, IN AN OFFICE OR OUTPATIENT FACILITY, APPROXIMATELY 20 TO 30 MINUTES [id number] W THE PATIENT; [facility] EVAL & MGT SER 11/11/2003 [facility] INDIVIDUAL PSYCHOTHERAPY, INSIGHT ORIENTED, BEHAVIOR MODIFYING AND/OR SUPPORTIVE, IN AN OFFICE OR OUTPATIENT FACILITY, APPROXIMATELY 45 TO 50 MINUTES [id number] W THE PATIENT; [facility] EVAL & MGT SER 10/17/2003 [facility] INDIVIDUAL PSYCHOTHERAPY, INSIGHT ORIENTED, BEHAVIOR MODIFYING AND/OR SUPPORTIVE, IN AN OFFICE OR OUTPATIENT FACILITY, APPROXIMATELY 45 TO 50 MINUTES [id number] W THE PATIENT; [facility] EVAL & T SER 10/02/2003 [facility] INDIVIDUAL PSYCHOTHERAPY, INSIGHT ORIENTED, BEHAVIOR MODIFYING AND/OR SUPPORTIVE, IN AN OFFICE OR OUTPATIENT FACILITY, APPROXIMATELY 45 TO 50 MINUTES [id number] WITH THE PATIENT 09/24/2003 [facility] INDIVIDUAL PSYCHOTHERAPY, INSIGHT ORIENTED, BEHAVIOR MODIFYING AND/OR SUPPORTIVE, IN AN OFFICE OR OUTPATIENT FACILITY, APPROXIMATELY 20 TO 30 MINUTES [id number] W THE PATIENT; [facility] EVAL & MGT SER 08/30/2003 [facility] INDIVIDUAL PSYCHOTHERAPY, INSIGHT ORIENTED, BEHAVIOR MODIFYING AND/OR SUPPORTIVE, IN AN OFFICE OR OUTPATIENT FACILITY, APPROXIMATELY 20 TO 30 MINUTES [id number] W THE PATIENT; [facility] EVAL & MGT SER 08/16/2003 [facility] INDIVIDUAL PSYCHOTHERAPY, INSIGHT ORIENTED, BEHAVIOR MODIFYING AND/OR SUPPORTIVE, IN AN OFFICE OR OUTPATIENT FACILITY, APPROXIMATELY 45 TO 50 MINUTES [id number]-EF-[id number] WITH THE PATIENT 08/12/2003 [facility] INDIVIDUAL PSYCHOTHERAPY, INSIGHT ORIENTED, BEHAVIOR MODIFYING AND/OR SUPPORTIVE, IN AN OFFICE OR OUTPATIENT FACILITY, APPROXIMATELY 45 TO 50 MINUTES [id number] WITH THE PATIENT 08/05/2003 [facility] PSYCHIATRIC DIAGNOSTIC INTERVIEW EXAMINATION 07/26/2003 [facility] PSYCHIATRIC DIAGNOSTIC INTERVIEW EXAMINATION 07/18/2003 [facility] PSYCHIATRIC DIAGNOSTIC INTERVIEW EXAMINATION 07/16/2003 [facility] TREATMENT OF SUPERFICIAL WOUND DEHISCENCE; SIMPLE CLOSURE 06/28/2003 DoD Social History Combined list of available smoking, tobacco, and other social history from Department of Defense and Veterans Affairs facilities. Social History Type Response Date Comment Sourc e This section is an empty social history section. DoD
[2024-03-22 17:30] VITALS: BP 115/73; PULSE 96; RESP 20; TEMP 37.4; O2SAT 100
--- NOTE | 2024-03-22 17:59 | ED.URI ---
HPI - URI/Sore Throat General Chief Complaint: Upper Respiratory Infection Stated Complaint: Fever/cough/aches Source: patient and RN notes reviewed Mode of arrival: ambulatory Limitations: no limitations History of Present Illness HPI Narrative: 38-year-old male with history of asthma presented for complaint of headache, body aches, sinus pressure/congestion, cough, fever/chills. onset 4 days. Denies sob, wheezing, n/v/d. Taking neag-dcq-znxnurm medicines. Children with similar symptoms. MD elicited complaint: cough Related Data Home Medications ?Medication ?Instructions ?Recorded ?Confirmed ?Last Taken ?Type albuterol 90 mcg/actuation aerosol 90 mcg inhalation Q4-6H PRN 03/22/24 Unknown History inhaler shortness of breath or wheezing cetirizine 10 mg tablet mg 03/22/24 Unknown History dextroamphetamine-amphetamine 20 03/22/24 Unknown History mg tablet meloxicam 15 mg tablet mg 03/22/24 Unknown History tadalafil 20 mg tablet mg 03/22/24 Unknown History trospium 60 mg capsule,extended mg PO 03/22/24 Unknown History release 24 hr Allergies Allergy/AdvReac Type Severity Reaction Status Date / Time No Known Allergies Allergy Mild Verified 03/22/24 17:36 Review of Systems Review of Systems: per HPI Exam Narrative: GENERAL: Ill-appearing, nontoxic no acute distress. EYES: PERRLA, conjunctivae clear ENT: Mucous membranes moist. TM pearly stephens with dull light reflex bilaterally; no tragal tenderness. Oropharynx not erythematous without lesions or exudate, no drooling, no hoarseness, no trismus, uvula midline. No tripod positioning, muffled voice, soft palate or pharyngeal wall bulging NECK: Supple. No lymphadenopathy CHEST: Clear to auscultation, breath sounds equal. No wheezing, rhonchi, rales, or stridor. No respiratory distress, speaks in full sentences. HEART: Regular rate and rhythm. No murmur heard. SKIN: Warm, dry, no rash. NEURO: Alert and oriented x3. PSYCH: Normal mood and affect Course Course Emergency Course: Patient is aware of diagnosis, understands and agrees to treatment plan. Anticipatory guidance given. Patient agrees to follow-up as directed and is aware of reasons to seek care at the emergency department. Portions of this record may have been created with voice recognition software Level of Care: Express Care Visit Vital Signs Vital signs: Vital Signs Temperature 99.3 F 03/22/24 17:30 Pulse Rate 96 03/22/24 17:30 Respiratory Rate 20 03/22/24 17:30 Blood Pressure 115/73 03/22/24 17:30 Pulse Oximetry 100 03/22/24 17:30 Oxygen Delivery Room Air 03/22/24 17:30 Temperature 99.3 F 03/22/24 17:30 Pulse Rate 96 03/22/24 17:30 Respiratory Rate 20 03/22/24 17:30 Blood Pressure 115/73 03/22/24 17:30 Pulse Oximetry 100 03/22/24 17:30 Oxygen Delivery Room Air 03/22/24 17:30 reviewed MDM - URI/Sore Throat MDM Narrative Medical decision making narrative: POS flu. Discussed physical exam findings. Advised supportive measures and signs/symptoms to go to the ER. Pt is appropriate for outpt treatment and f/u. Differential Diagnosis Differential diagnosis: Likely upper respiratory infection, sinusitis and viral infection Discharge Plan Discharge Clinical Impression: Influenza Patient Disposition: Home, Self-Care Condition: Stable Instructions: Influenza (ED) Additional Instructions: Influenza positive You should avoid crowds until you are fever free for 24 hours without the use of fever reducing medications, or the symptoms are improved Rest. Drink plenty of fluids. Tylenol 1000mg every 8 hours as needed for pain/fever Recommend Flonase spray and Zyrtec (or Claritin/Kasey) for sinus pressure/congestion over the counter Cough syrup may cause drowsiness; avoid driving or take it at night time. Follow up with your primary care provider as needed Go to the ER for worsening symptoms or concerns Patient Language: [place]an Prescriptions: No Action cetirizine 10 mg tablet meloxicam 15 mg tablet dextroamphetamine-amphetamine 20 mg tablet tadalafil 20 mg tablet trospium 60 mg capsule,extended release 24hr PO albuterol 90 mcg/actuation aerosol 90 mcg inhalation Q4-6H PRN (Reason: shortness of breath or wheezing) Follow-up/Referrals: Harms,Raudel Majano M.D. [Primary Care Provider] - Stand Alone Forms: Work/School Release IP Time of Disposition: 18:04
[2024-03-22 18:19] LABS: EDCOVIDSCREEN Negative (Negative); EDINFLUASCREEN Positive (Negative); EDINFLUBSCREEN Negative (Negative)
== END 2024-03-22 18:05 | disposition home or self-care (01) ==
PROVIDERS: Emergency Provider Nurse Practitioner Family; PCP Family Medicine
DX: J11.1 Influenza due to unidentified influenza virus with other respiratory manifestations (principal); Z20.822 Contact with and (suspected) exposure to COVID-19
CPT/HCPCS: 87426; 87804; 99202; G0463